=== PATIENT | female | born 1985 | race Caucasian/White ===

== ENCOUNTER 2018-04-14 08:00 | Outpatient (CLI) | payer OTHER | END 2018-04-14 08:01 | disposition home or self-care (01) | LOC: LAB.R 08:00 | PROVIDERS: ATTEND Obstetrics & Gynecology | DX: Z11.3 Encounter for screening for infections with a predominantly sexual mode of transmission (principal) | CPT/HCPCS: 87491; 87591 ==

== ENCOUNTER 2018-06-28 11:59 | Outpatient (CLI) | payer OTHER ==
--- NOTE | 2018-06-28 13:19 | Ultrasound Report ---
Reason: ENCTR FOR TEST, RESULT POSITIVE Procedure Date: 06/28/2018 Accession Number: [id number] / [id number] Procedure: US - OB First Trimester CPT Code: FULL RESULT: EXAM: FIRST TRIMESTER OBSTETRIC ULTRASOUND (Less than 11 weeks) EXAM DATE: 06/28/2018 12:58 PM. CLINICAL HISTORY: dating and viability LMP: 04/22/2018. COMPARISONS: None. TECHNIQUE: Transabdominal and transvaginal ultrasound examination with static image documentation. CLINICAL DATES: EGA 9 weeks 4 days with JOSS 01/27/2019 based on LMP 04/22/2018. ASSESSMENT: Gestational Sac: Single intrauterine. Normal shape. Embryo: CRL (crown-rump length) 33 mm = 9 weeks 6 days. Cardiac activity: 169 beats per minute. Yolk sac: 4 mm. Amniotic fluid: Not accurately assessed at this gestational age. Early placenta: Not visible at this gestational age. Other: No perigestational fluid collection demonstrated. MATERNAL STRUCTURES: Uterus: Retroverted. Unremarkable. Cervix: Closed. Right Ovary/Adnexa: The ovary is seen only transvaginally and measures 4.7 x 1.7 x 2.6 cm, volume 10.9 cc. Unremarkable. Left Ovary/Adnexa: The ovary is seen only transabdominally and measures 3.9 x 1.7 x 2.6 cm, volume 9.0 cc. Unremarkable. Free Fluid: None. Other: None. IMPRESSION: 1. Single viable intrauterine at EGA 9 weeks 6 days with JOSS 01/25/2019 based on crown-rump length, which is concordant with clinical dates. 2. Assigned dating is JOSS 01/27/2019 based on LMP. [place]
== END 2018-06-28 12:00 | disposition home or self-care (01) ==
LOC: DI 11:59
PROVIDERS: ATTEND Obstetrics & Gynecology
DX: Z32.01 Encounter for pregnancy test, result positive (principal); Z3A.09 9 weeks gestation of pregnancy
CPT/HCPCS: 76801

== ENCOUNTER 2018-06-30 08:00 | Outpatient (CLI) | payer OTHER ==
[2018-06-30 15:06] LABS: MUDS CUTOFF CONCENTRATIONS CUTOFF CONC BELOW:
[2018-06-30 15:42] LABS: AMPHETAMINE SCREEN,URINE NEGATIVE (NEGATIVE); BENZODIAZEPINES SCREEN, URINE NEGATIVE (NEGATIVE); COCAINE SCREEN URINE NEGATIVE (NEGATIVE); METHADONE SCREEN, URINE NEGATIVE (NEGATIVE); METHAMPHETAMINES SCREEN, URINE NEGATIVE (NEGATIVE); OPIATE SCREEN, URINE NEGATIVE (NEGATIVE); OXYCODONE SCREEN, URINE NEGATIVE (NEGATIVE); PROPOXYPHENE SCREEN, URINE NEGATIVE (NEGATIVE); TRICYCLIC ANTIDEPRESSANT,URINE NEGATIVE (NEGATIVE)
== END 2018-06-30 08:01 | disposition home or self-care (01) ==
LOC: LAB.R 08:00
PROVIDERS: ATTEND Nurse Practitioner Obstetrics & Gynecology
DX: Z36.9 Encounter for antenatal screening, unspecified (principal)
CPT/HCPCS: 80306

== ENCOUNTER 2018-09-15 12:40 | Outpatient (CLI) | payer OTHER ==
--- NOTE | 2018-09-15 16:48 | Ultrasound Report ---
Reason: Procedure Date: 09/15/2018 Accession Number: [id number] / [id number] Procedure: US - OB Detailed Eval CPT Code: FULL RESULT: EXAM: COMPLETE OBSTETRICAL ULTRASOUND EXAM DATE: 09/15/2018 03:01 PM. CLINICAL HISTORY: anatomic survey. COMPARISON: OB ultrasound 06/28/2018. TECHNIQUE: Real-time sonographic evaluation of the fetus performed by the financial agent. Multiple circulation representative static images were saved for review. DATING: Established EGA 20 weeks 6 days with JOSS 01/27/2019 based on LMP. EGA 21 weeks 1 day with JOSS 01/25/2019 based on prior ultrasound. EGA 21 weeks 0 days with JOSS 01/26/2019 based on the current ultrasound. GENERAL EVALUATION [place] . Cardiac activity: 152 bpm. movement: Visualized. Presentation: Variable Placenta: Posterior position. The tip of the placenta is 1.2 cm from the internal cervical os. Umbilical cord: 3 vessel cord. Central placental cord origin. Amniotic fluid: Subjectively normal. MVP 5.0 cm. BIOMETRY Bi-Parietal Diameter (BPD): 4.8 cm, 20 weeks 5 days Head Circumference (HC): 18.4 cm, 20 weeks 6 days Abdominal Circumference (AC): 16.3 cm, 21 weeks 3 days Femur Length (FL): 3.5 cm, 21 weeks 1 day Estimated Weight: 405 g, 62nd percentile for LMP. ANATOMY The intracranial structures, profile, face/nose/lips, spine, 4 chamber heart and outflow tracts, stomach, abdominal wall and cord insertion, diaphragm, kidneys, bladder, and extremities were visualized and demonstrate no abnormality. MATERNAL STRUCTURES Uterus: Unremarkable. Cervix: Long and closed. Transabdominal length 4.9 cm. Right ovary/adnexa: Unremarkable. Left ovary/adnexa: Unremarkable. Free fluid: None. IMPRESSION: 1. [place] live intrauterine with gestational age 20 weeks 6 days based on LMP. 2. Estimated weight is within expected limits for assigned dating. 3. Normal anatomic survey. No anatomic abnormalities are detected at this time. RADIA
== END 2018-09-15 12:41 | disposition home or self-care (01) ==
LOC: DI 12:40
PROVIDERS: ATTEND Registered Nurse
DX: Z36.89 Encounter for other specified antenatal screening (principal); Z3A.20 20 weeks gestation of pregnancy
CPT/HCPCS: 76811

== ENCOUNTER 2018-10-09 12:56 | Outpatient (CLI) | payer OTHER | END 2018-10-09 12:57 | disposition home or self-care (01) | LOC: LAB 12:56 | PROVIDERS: ATTEND Nurse Practitioner Obstetrics & Gynecology | DX: R50.9 Fever, unspecified (principal) | CPT/HCPCS: 87275; 87276 ==

== ENCOUNTER 2018-11-10 08:07 | Outpatient (CLI) | payer OTHER | END 2018-11-10 08:08 | disposition home or self-care (01) | LOC: LAB 08:07 | PROVIDERS: ATTEND Nurse Practitioner Obstetrics & Gynecology | DX: O99.810 Abnormal glucose complicating pregnancy (principal) | CPT/HCPCS: 36415; 82951; 82952 ==

== ENCOUNTER 2018-12-15 08:33 | Outpatient (CLI) | payer OTHER ==
--- NOTE | 2018-12-15 11:41 | Ultrasound Report ---
Reason: LOW LYING PLACENTA Procedure Date: 12/15/2018 Accession Number: [id number] / [id number] Procedure: US - OB F/U or Repeat CPT Code: FULL RESULT: EXAM: FOLLOW-UP OBSTETRICAL ULTRASOUND EXAM DATE: 12/15/2018 08:44 AM. CLINICAL HISTORY: Low lying placenta. COMPARISON: OB DETAILED EVAL 09/15/2018 12:48 PM. TECHNIQUE: Real-time sonographic evaluation of the fetus performed by the rope rider. Additional transvaginal imaging to more accurately evaluate cervical length/placental position/etc. Multiple technical sales representative static images were saved for review. DATING: Established EGA 33 weeks 6 days with JOSS 01/27/2019 based on telepathist. EGA 34 weeks 3 days with JOSS 01/23/2019 based on the current ultrasound. GENERAL EVALUATION [place] . Cardiac activity: 140 bpm. movement: Visualized. Presentation: Cephalic. Placenta: Posterior and fundal position. Amniotic fluid: Normal. NATALIE 13 cm. MVP 3.5 cm. BIOMETRY Bi-Parietal Diameter (BPD): 8.0 cm, 32 weeks 1 day Head Circumference (HC): 30.4 cm, 33 weeks 5 days Abdominal Circumference (AC): 33.1 cm, 37 weeks 0 days Femur Length (FL): 6.7 cm, 34 weeks 4 days Estimated Weight: 2691 g, 87th percentile for 33 weeks 6 days. MATERNAL STRUCTURES The placenta is greater than 2.5 cm from the internal cervical opening, placenta is not low lying. IMPRESSION: 1. [place] live intrauterine with gestational age 33 weeks 6 days based on telepathist. 2. Estimated weight is within expected limits for assigned dating. 3. Normal interval growth compared to 09/15/2018. 4. Normal placental relationship to the cervix, placenta is not low lying. RADIA
== END 2018-12-15 08:34 | disposition home or self-care (01) ==
LOC: DI 08:33
PROVIDERS: ATTEND Registered Nurse
DX: O44.43 Low lying placenta NOS or without hemorrhage, third trimester (principal); Z3A.33 33 weeks gestation of pregnancy
CPT/HCPCS: 76816

== ENCOUNTER 2018-12-22 08:00 | Outpatient (CLI) | payer OTHER | END 2018-12-22 23:59 | disposition home or self-care (01) | LOC: LAB.R 08:00 | PROVIDERS: ATTEND Registered Nurse | DX: Z33.1 Pregnant state, incidental (principal) | CPT/HCPCS: 87081; 87181; 87491; 87591; 87797 ==

== ENCOUNTER 2018-12-25 08:00 | Outpatient (CLI) | payer OTHER ==
[2018-12-26 11:02] LABS: HEPATITIS C ANTIBODY NON-REACTIVE (NON-REACTIVE)
[2018-12-26 11:57] LABS: HIV AG/AB 4TH GEN NON-REACTIVE (NON-REACTIVE)
== END 2018-12-25 23:59 | disposition home or self-care (01) ==
LOC: LAB.WCP 08:00
PROVIDERS: ATTEND Registered Nurse
DX: Z33.1 Pregnant state, incidental (principal)
CPT/HCPCS: 36415; 81599; 86592; 86803; 87389

== ENCOUNTER 2019-01-20 10:06 | Inpatient (IN) | payer OTHER ==
[2019-01-20] MEDS ORDERED: SODIUM CHLORIDE FLUSH 0.9% 10 ML SYRINGE IVP PRN (10:40)
[2019-01-20] MEDS ORDERED: OXYTOCIN/SODIUM CHLORIDE 500 ML IV PRN (10:40)
[2019-01-20] MEDS ORDERED: ONDANSETRON 4 MG/2 ML VIAL IVP PRN (10:40)
[2019-01-20] MEDS ORDERED: SODIUM CHLORIDE FLUSH 0.9% 10 ML SYRINGE ONE ×2 (10:44→13:57)
--- NOTE | 2019-01-20 10:44 | HISTORY & PHYSICAL EXAMINATION ---
Admit History - Visit Reason Visit Reason: Contractions (beginning at 0300, more intense at 0900, now feeling nauseated & having bloody show; no LOF, no clem bleeding, +FM) - : 4 Parity: 2 Premature: 0 Ectopic: 0 : 1 Care: positive: [facility] Risk/History: positive: None Complications This : positive: None Smoking Status: Never smoker - Mother's Labs Mother's Blood Type: positive: A Mother's RH: positive: Positive GBS: positive: Group B Strep Positive (amox allergic, clinda susceptible) Rubella Status: positive: Immune Review of Systems - Constitutional Constitutional: denies: Fatigue, Fever, Chills - Eyes Eyes: denies: Blurred vision, Spots in vision - Cardiovascular Cariovascular: denies: Irregular heart rate, Palpitations, Chest pain, Edema - Respiratory Respiratory: denies: Cough, Sputum production, SOB at rest - Gastrointestinal Gastrointestinal: reports: Abdominal pain (contractions), Diarrhea, Change in bowel habits, Nausea (desires antiemetic). denies: Constipation - Genitourinary Genitourinary: reports: Frequency, Urgency. denies: Dysuria - Musculoskeletal Musculoskeletal: denies: Muscle pain, Back pain, Muscle aches - Integumentary Integumentary: denies: Rash, Pruritis, Lesions - Neurological Neurological: denies: General weakness, Focal weakness, Headache - Psychiatric Psychiatric: denies: Depression, Anxiety - All Other Systems All Other Systems: reports: Reviewed and negative Physical - Abdominal Exam Vital Signs: HR 89bpm, BP 94/54, RR 18, SPO2 100 Contraction Frequency (min/apart): 5-7 Contraction Intensity: positive: Strong Uterine Resting Tone: positive: Soft - Monitoring Heart Rate Baseline: 130 Strip Review: positive: Category I - Presentation Presentation: positive: Vertex - Vaginal Exam Membranes: positive: Membranes intact (BBOW) Dilation (in cm): 7-8 Effacement (%): 80 Station: positive: -1 Cervical Position: positive: Anterior - Speculum Exam Speculum Exam Performed: positive: No Findings: negative: Gross leak - Other Notes Labor Progress Note/Additional Text: Ashley Funk is a 34 y/o @ 39 weeks' EGA by first trimester US who has received consistent care w/o complication throughout her . Her was complicated by initially identified low-lying placenta @ FAS that had resolved on f/u w/ 33w6d US demonstrating no evidence of low-lying placentation; EFW 87th percentile @ that time & normal AFV. Her 1-hr gtt was elevated at 152mg/dL, but her 3-hr gtt was normal at 88/160/155/119mg/dL. She screened positive for GBS at 36 weeks & sensitivity was assessed secondary to amoxicillin allergy; GBS sensitive to clindamycin. Her AMA status was unaddressed during , as she declined MFM or genetic counseling referral & declined genetic screening. She presents today w/ spontaneous onset of uterine contractions @ 0300 w/o LOF. Stronger contractions w/ some nausea beginning @ 0900 & notable bloody show but no clem vaginal bleeding. Her desire is for minimal intervention & an unmedicated delivery. She was hoping to utilize hydrotherapy for pain management. PMH: Unremarkable PSH: ACL 2001, D&C 2010, no complications OBhx: SAB 2010 @ 6 weeks w/ subsequent D&C; FTSVD, epidural 2013, no complications; FTSVD 2016, unmedicated, no complications GYNhx: no hx STI; normal pap 2017 SocHx: to inga; denies DV; no financial concerns @ home, lives w/ children & , employed w/ [employer], plans to return, denies etoh/drugs/tobacco, no social risk Famhx: Bladder/breast ca, remote PE: GEN: AAOX3, NAD WA GRAVID FEMALE HEENT: GROSSLY NORMOCEPHALIC, ATRAUMATIC RESP: LUNGS B/L CTA T/O CARDIAC: RRR NLS1S2, NO MURMUR ABD: GRAVID, NT; LIE LONGITUDINAL, PRESENTATION CEPHALIC; EFW 8# OB: EFM: BL 130BPM, +ACCELS, NO DECELS, MOD JENNA; TOCO: UCS Q5-7 MIN X1 MIN, PALP STRONG; SVE: 7-8/80/-1 BBOW, ANTERIOR : NO LESION, MUCOID EXUDATE (PHYSIOLOGIC) MS: FROM T/O, NO DEFORMITY/ERYTHEMA/EDEMA SKIN: WARM, WELL-PERFUSED, C/D/I, NO LESION NEURO: NO FOCAL DEFICIT PSYCH: NORMAL MOOD & AFFECT; PLEASANTLY CONVERSANT; ACCOMPANIED BY INGA, WHO IS INVOLVED & VERY SUPPORTIVE Plan for Labor - Plan For Labor I expect patient to be DC'd or transferred within 96 hours.: Yes Plan for Labor: 1. Admit to inpatient for active, spontaneous labor @ term 2. IV insertion & cbc/type & screen 3. begin clindamycin infusion per protocol for GBS prophylaxis 4. ondansetron 4mg IVP x1 now for nausea 5. intermittent auscultation per protocol secondary to consistently cat I NST & low-risk w/o intervention necessitating CEFM; do not intermittently monitor w/ monitor--utilize doppler only unless clear indication for monitor 6. Hydrotherapy per pt request 7. Reviewed option of AROM for expediting delivery, pt to consider 8. Reviewed pain management, pain relief, ambulation, optimal positioning, pt will utilize hydrotherapy for now 9. Reassess cervical status w/ maternal urge to push, earlier per pt request 10. Anticipate
[2019-01-20] MEDS ORDERED: LACTATED RINGERS 1,000 ML IV ONE (11:09)
[2019-01-20 11:20] LABS: BASOPHILS % (AUTO) 0.2 %; EOSINOPHILS # (AUTO) 0.2 10^3/uL (0.0-0.7); EOSINOPHILS % (AUTO) 1.4 %; HGB - HEMOGLOBIN 12.6 g/dL (12.0-16.0); LYMPHOCYTES # (AUTO) 2.2 10^3/uL (1.5-3.5); LYMPHOCYTES % (AUTO) 15.7 %; MEAN CORPUSCULAR HEMOGLOBIN 28.8 pg (27.0-31.0); MEAN CORPUSCULAR HGB CONC 33.8 g/dL (32.0-36.0); MEAN CORPUSCULAR VOLUME 85.1 fL (81.0-99.0); MEAN PLATELET VOLUME 7.2 fL (7.9-10.8); MONOCYTES # (AUTO) 1.1 10^3/uL (0.0-1.0); MONOCYTES % (AUTO) 7.6 %; NEUTROPHILS # (AUTO) 10.5 10^3/uL (1.5-6.6); NEUTROPHILS % (AUTO) 75.1 %; PLT - PLATELET COUNT 161 10^3/uL (130-450); RED BLOOD COUNT 4.37 10^6/uL (4.20-5.40); RED CELL DISTRIBUTION WIDTH 13.7 % (12.0-15.0)
[2019-01-20] MEDS ORDERED: CLINDAMYCIN 900 MG/50 ML 50 ML IV SCH (12:00)
[2019-01-20] MEDS ORDERED: LACTATED RINGERS 1,000 ML IV SCH (12:00)
[2019-01-20] MEDS ORDERED: WITCH HAZEL/GLYCERIN 1 EACH MED..PAD TOP PRN (13:03)
[2019-01-20] MEDS ORDERED: HYDROCORTISONE 1% CREAM 28 GM TUBE PR PRN (13:03)
[2019-01-20] MEDS ORDERED: MAGNESIUM HYDROXIDE 2,400 MG/30 ML UDC PO PRN (13:03)
--- NOTE | 2019-01-20 13:10 | DELIVERY NOTE ---
Delivery Note - Labor Labor: positive: Spontaneous - Delivery Method Delivery Method: positive: Spontaneous vaginal delivery - Presentation Presentation: positive: Vertex, Compound (R hand), UNRULY - right occiput anterior - Nuchal Cord Nuchal Cord: positive: None - Anesthetic Anesthetic Type: - Amniotic Fluid Description Amniotic Fluid Description: positive: Clear (AROM for mod CAF @ 1244, for a total ruptured duration of 6 minutes) - Episiotomy Type Episiotomy Type: positive: None - Laceration Laceration: positive: None - Delivery Outcome Delivery Outcome: positive: Livebirth - [place]: positive: Placed in direct skin contact with mother, Stimulated, Warmed sex: positive: Female - Cord Cord: positive: 3 vessels - Placenta Placenta: positive: Intact, Spontaneous - Estimated Blood Loss Estimated Blood Loss (in cc): 300 - Post Delivery Events Post Delivery Events: positive: No post delivery events - Delivery Comments (Free Text/Narrative) Delivery Comments (Free Text/Narrative): Ashley Funk is a 34 y/o [id number] who presented in spontaneous, active labor @ 39 weeks' gestation by first trimester US. She reported SOOC @ 0300 w/ increasing intensity @ 0900; at 1030, she was found to be 7-8cm dilated. She received a single dose of IV clindamycin for GBS prophylaxis & utilized hydrotherapy for pain management. FHTs were monitored via intermittent auscultation t/o & were consistently reassuring. She reported increased pelvic pressure & was found to be completely dilated at 1243, for a total first stage duration of 3 hours, 43 minutes. AROM for moderate CAF per pt request & she pushed effectively w/ spontaneous urge to viable female in UNRULY position w/ R compound hand over intact perineum @ 1250, for a total 2nd stage duration of 7 minutes. vigorous w/ spontaneous, lusty cry. Placed to maternal abd for drying/stim. Delayed cord clamping until cessation of pulsation, then cord clamped x2 by CNM, cut by FOB. 3VC noted, cord blood obtained. Active management of the 3rd stage w/ Pitocin in IV fluids; placenta delivered spontaneously & intact, Od[place], @ 1253, for a total 3rd stage duration of 3 minutes. FF @ U-1. Vagina & perineum inspected & found to be intact. EBL 300mL. Mother & infant stable, actively w/in 15 minutes of delivery w/ report of 2 previously successful experiences. Apgars 8/9, naming baby ROHIT RUIZ. Weight pending.
[2019-01-20] MEDS: IBUPROFEN 800 MG TABLET PO SCH ×2 (13:52→20:10)
[2019-01-20] MEDS: ACETAMINOPHEN 500 MG TABLET PO SCH ×2 (13:53→21:56)
[2019-01-20] MEDS ORDERED: SODIUM CHLORIDE FLUSH 0.9% 10 ML SYRINGE IVP SCH (17:00)
[2019-01-20] MEDS: DOCUSATE SODIUM 100 MG CAPSULE PO SCH (20:46)
[2019-01-21] MEDS: ACETAMINOPHEN 500 MG TABLET PO SCH (06:22)
[2019-01-21] MEDS: IBUPROFEN 800 MG TABLET PO SCH ×2 (06:23→12:39)
--- NOTE | 2019-01-21 08:55 | Discharge Plan ---
Discharge Plan Disposition: 01 Home, Self Care Condition: Good Diet: Regular Activity Restrictions: pelvic rest x6 weeks Shower Restrictions: No (no TUB BATHS) Driving Restrictions: No Weight Bearing: Full Weight Instruction Topics: Vaginal After, Breastfeed How To, Exercises Kegel No Smoking: If you smoke, Please STOP! Call for help. Follow-up with: Provider,Other [Primary Care Provider] - Jacqueline Samuels, [place], [place]Y [Provider Admit Priv/Credential] -
--- NOTE | 2019-01-21 08:58 | DISCHARGE SUMMARY ---
"Discharge Summary Admit Date: 01/20/19 Discharge Date: 01/21/19 Discharging Provider: MACI Code Status: Attempt Resuscitation Condition at Discharge: Good Discharge Disposition: 01 Home, Self Care Discharge Facility Name: [facility] - DIAGNOSES Admission Diagnoses: ACTIVE SPONTANEOUS LABOR AT TERM Discharge Diagnoses with Status of Each Condition: - HPI History of Present Illness: ALFREDO ORONA IS A 34 Y/O [id number] WHO PRESENTED @ 39 WEEKS' GESTATION IN ACTIVE, SPONTANEOUS LABOR. SHE RECEIVED A SINGLE DOSE OF CLINDAMYCIN FOR GBS PROPHYLAXIS PER PROTOCOL. SHE PROGRESSED RAPIDLY W/O INTERVENTION OR MEDICATION TO COMPLETE DILATATION & DELIVERED A VIABLE FEMALE VAGINALLY W/O COMPLICATION OR LACERATION. - CONSULTS | PROCEDURES Procedures: - HOSPITAL COURSE Hospital Course: , ALFREDO IS DOING WELL. SHE IS AMBULATING & VOIDING W/O DIFFICULTY OR DISCOMFORT. SHE IS PASSING FLATUS & TOLERATING A REGULAR DIET. SHE IS EXCLUSIVELY W/O DIFFICULTY & REPORTS 2 PREVIOUSLY SUCCESSFUL EXPERIENCES. SHE DENIES HX OF PP DEPRESSION & HAS EXCELLENT SOCIAL SUPPORT. SHE IS NOT PLANNING ANOTHER . SHE REPORTS ADEQUATE PAIN CONTROL W/O OPIOID ANALGESIA. SHE IS ABLE TO FULLY ARTICULATE PP WARNING S/SX, INCLUDING PP DEPRESSION S/SX, AND PP AFTERCARE INSTRUCTIONS. SHE IS EAGER TO LEAVE THE HOSPITAL. - ALLERGIES Allergies/Adverse Reactions: Allergies Allergy/AdvReac Type Severity Reaction Status Date / Time amoxicillin Allergy Hives Verified 01/20/19 14:31 - MEDICATIONS Home Medications: Ambulatory Orders Medication Instructions Recorded Confirmed Ibuprofen [Motrin] 800 mg PO Q6H tablet 01/21/19 - PHYSICAL EXAM AT DISCHARGE General Appearance: positive: No acute distress, Alert Eyes Bilateral: positive: Normal inspection, PERRL, EOMI Respiratory: positive: Chest non-tender, No respiratory distress, Breath sounds nml Cardiovascular: positive: Regular rate & rhythm, No murmur, No gallop Abdomen: positive: Non-tender, No distention, Other (FF U-2) Skin: positive: Color nml, No rash, Warm, Dry Extremities: positive: Non-tender, Full ROM, Nml appearance, No pedal edema. negative: Calf tenderness, Joint swelling, Radha's sign/cords Neurologic/Psychiatric: positive: Oriented x3, CN's nml (2-12), Motor nml, Sensation nml, Mood/affect nml - LABS Result Diagrams: 01/20/19 10:50 - FOLLOW UP Follow Up: X 3 WEEKS IN OUTPT CLINIC W/ KANE LUX CNM; EARLIER PRN PROBLEM - TIME SPENT Time Spent in Discharge (Minutes): 15"
[2019-01-21] MEDS: DOCUSATE SODIUM 100 MG CAPSULE PO SCH (12:39)
[2019-01-21 12:47] VITALS: BP 112/63
--- NOTE | 2019-01-21 14:35 | Labor Flowsheet ---
Labor Flowsheet Datetime Report Generated by CPN: 01/21/2019 14:35 Datetime: 01/21/2019 12:34 VITAL SIGNS NBP Sys/Bonnie/Mean (mmHg): 112 : 63 : 75 Pulse: 68 SpO2 (%): 99 LaborFlag: Labor Datetime: 01/20/2019 12:51 Medication Comments: pit wide open Datetime: 01/20/2019 12:50 Comments: baby girl @ 1250 Patient Care Comments: right hand compound at delivery Datetime: 01/20/2019 12:42 VAGINAL EXAM Dilatation (cm): 10.0 Effacement (%): 100 Station: 2 Exam by: milagrosa Membranes Rupture Method: Artificial Amniotic Fluid Color: Clear Amniotic Fluid Odor: None Cervix, Consistency: Soft Cervix, Position: Anterior Membrane Comments: arom by CNM Datetime: 01/20/2019 12:39 COMMUNICATION Communication: Provider at Bedside Communication Comments: lelia philliposa cnm at bedside Datetime: 01/20/2019 12:24 Frequency (min): 8 Quality: Strong Duration (sec): 60-90 ASSESSMENT A Monitor Mode: Doppler PAIN Pain Coping: Breathing Through Contractions PATIENT CARE Comfort Measures: Breathing/Relaxation Datetime: 01/20/2019 12:06 Stage of : Labor Datetime: 01/20/2019 11:21 UTERINE ACTIVITY Monitor Mode: External Resting Tone (Palpate): Relaxed FHR Baseline Rate : 120 Variability: Moderate 6-25 bpm Accelerations: 15X15 Decelerations: None Category: Category I Datetime: 01/20/2019 11:10 MEDICATIONS Antibiotics: Clindamycin IV 900 mg
== END 2019-01-21 14:15 | disposition home or self-care (01) | DRG 807 ==
LOC: WFO 10:06 → FBP 10:07 → WFO 10:39 → FBP 10:40
PROVIDERS: ADMIT Registered Nurse; ATTEND Registered Nurse
PROC: 10E0XZZ Delivery of Products of Conception, External Approach (ICD-10-PCS; principal; 2019-01-20)
PROC: 10907ZC Drainage of Amniotic Fluid, Therapeutic from Products of Conception, Via Natural or Artificial Opening (ICD-10-PCS; 2019-01-20)
DX: O99.824 Streptococcus B carrier state complicating childbirth (principal); Z37.0 Single live birth; O32.6XX0 Maternal care for compound presentation, not applicable or unspecified; Z3A.39 39 weeks gestation of pregnancy; Z88.1 Allergy status to other antibiotic agents
CPT/HCPCS: 85025; 86850; 86900; 86901; 99213; A9270; J7120